=== PATIENT | male | born 1960 | race Caucasian/White ===

== ENCOUNTER 2024-04-08 00:08 | Emergency (ER) | payer MEDICAID, OTHER ==
[~2024-04-08] VITALS: Ht 177.8 cm; Wt 95.4 kg
[2024-04-08 00:51] LABS: Basophils # (auto) 0 10 ^3/uL (0-0.2); Basophils % (auto) 0.5 % (0.0-2.0); Eosinophils # (auto) 0.6 10 ^3/uL (0-0.8); Hematocrit 46.5 % (41.0-53.0); Hemoglobin 15.3 g/dL (13.5-17.5); Lymphocytes # (auto) 2.3 10 ^3/uL (0.4-5.4); Lymphocytes % (auto) 25.3 % (10.0-50.0); Mean Corpuscular Hgb Conc. 32.9 g/dL (32.0-36.0); Mean Corpuscular Volume 85.3 fL (80.0-100.0); Monocytes # (auto) 0.7 10 ^3/uL (0-1.3); Neutrophils # (auto) 5.4 10 ^3/uL (1.6-8.6); Neutrophils % (auto) 59.2 % (37.0-80.0); Nucleated Red Blood Cells % 0.1 %; Red Blood Cells 5.45 10^6/uL (4.5-5.90); Red Cell Distribution Width 15.2 % (11.8-14.3); White Blood Cell 9.1 10^3/uL (4.4-10.8)
[2024-04-08 00:56] LABS: Alanine Aminotransferase 24 U/L (7-40); Albumin 4.1 g/dL (3.2-4.8); Alkaline Phosphatase 78 U/L (46-116); Anion Gap 8 (5-15); Aspartate Aminotransferase 24 U/L (13-40); BUN/Creatinine Ratio 9.5 (10.0-20.0); Blood Urea Nitrogen 8 mg/dL (9-23); Calcium 9.2 mg/dL (8.7-10.4); Carbon Dioxide 24 mmol/L (20-30); Chloride 107 mmol/L (98-107); Glucose 187 mg/dL (74-106); Magnesium 2.1 mg/dL (1.6-2.6); Sodium 139 mmol/L (136-145)
[2024-04-08 00:57] LABS: Bilirubin, Total 0.4 mg/dL (0.2-1.0); Total Protein 7.6 g/dL (5.7-8.2)
[2024-04-08 01:04] LABS: Partial Thromboplastin Time 26.8 SEC (24.5-34.5); Prothrombin Time 10.6 sec (9.3-11.8)
[2024-04-08] MEDS ORDERED: AZIT500T66 PO (02:56)
[2024-04-08] MEDS: AZITHROMYCIN 250 MG TAB PO ONE (03:28)
[2024-04-08 03:33] VITALS: BP 140/71; PULSE 73; RESP 17; TEMP 98.1; O2SAT 95
== END 2024-04-08 03:35 | disposition home or self-care (01) ==
LOC: ER 00:08
DX: J18.9 Pneumonia, unspecified organism (principal); Z88.2 Allergy status to sulfonamides
CPT/HCPCS: 36415; 71045; 80053; 83735; 83880; 84484; 85025; 85610; 85730; 93005

== ENCOUNTER 2024-04-08 04:24 | Inpatient (IN) | payer MEDICAID ==
[~2024-04-08] VITALS: Ht 177.8 cm; Wt 82.6 kg
[~2024-04-08 04:24] MED LIST: AZIT500T66 PO
[2024-04-08 04:50] VITALS: PULSE 81; RESP 16; O2SAT 91
[2024-04-08] MEDS: ASPirin 81 mg TAB PO ONE (06:24)
[2024-04-08 07:21] LABS: INR 1.03 (0.9-1.15); Partial Thromboplastin Time 27.2 SEC (24.5-34.5); Prothrombin Time 10.9 sec (9.3-11.8)
[2024-04-08 07:25] VITALS: PULSE 79; RESP 15; O2SAT 95
[2024-04-08 07:50] LABS: Alanine Aminotransferase 23 U/L (7-40); Albumin 4.1 g/dL (3.2-4.8); Alkaline Phosphatase 72 U/L (46-116); Anion Gap 4 (5-15); Aspartate Aminotransferase 20 U/L (13-40); Bilirubin, Total 0.4 mg/dL (0.2-1.0); Blood Urea Nitrogen 7 mg/dL (9-23); Calcium 9.1 mg/dL (8.7-10.4); Carbon Dioxide 27 mmol/L (20-30); Chloride 108 mmol/L (98-107); Glucose 191 mg/dL (74-106); Potassium 3.8 mmol/L (3.5-5.1); Sodium 139 mmol/L (136-145); Total Protein 7.1 g/dL (5.7-8.2)
[2024-04-08 07:54] LABS: Basophils # (auto) 0 10 ^3/uL (0-0.2); Basophils % (auto) 0.5 % (0.0-2.0); Eosinophils # (auto) 0.5 10 ^3/uL (0-0.8); Hematocrit 45.6 % (41.0-53.0); Hemoglobin 15.1 g/dL (13.5-17.5); Lymphocytes # (auto) 1.5 10 ^3/uL (0.4-5.4); Lymphocytes % (auto) 22.3 % (10.0-50.0); Mean Corpuscular Hemoglobin 28.4 pg (28.0-32.0); Mean Corpuscular Hgb Conc. 33.2 g/dL (32.0-36.0); Mean Corpuscular Volume 85.5 fL (80.0-100.0); Monocytes # (auto) 0.7 10 ^3/uL (0-1.3); Neutrophils # (auto) 3.9 10 ^3/uL (1.6-8.6); Neutrophils % (auto) 59.2 % (37.0-80.0); Nucleated Red Blood Cells % 0.1 %; Red Blood Cells 5.33 10^6/uL (4.5-5.90); Red Cell Distribution Width 15.2 % (11.8-14.3); White Blood Cell 6.6 10^3/uL (4.4-10.8)
[2024-04-08 10:05] VITALS: PULSE 80; RESP 16; O2SAT 92
[2024-04-08] MEDS ORDERED: LORazepam 0.5 MG TAB PO PRN (10:15)
[2024-04-08] MEDS ORDERED: ONDANSETRON HCL 4 MG/2 ML VIAL IV PRN (10:15)
[2024-04-08] MEDS ORDERED: ACETAMINOPHEN 325 MG TAB PO PRN (10:15)
[2024-04-08] MEDS ORDERED: NITROGLYCERIN 0.4 MG SL TAB SL PRN ×2 (10:15)
[2024-04-08] MEDS: levoFLOXacin 500MG 100 ML IV ONE (17:04)
[2024-04-08 17:25] VITALS: PULSE 91
[2024-04-08 20:00] VITALS: PULSE 85; PULSE 88; RESP 18; O2SAT 95
[2024-04-08 21:00] VITALS: BP 133/76; PULSE 85; RESP 18; TEMP 98; O2SAT 92
[2024-04-08] MEDS: METOPROLOL TARTRATE 25 MG TAB PO SCH (21:56)
[2024-04-08] MEDS: ATORVASTATIN 20 MG TAB PO SCH (21:56)
[2024-04-08] MEDS ORDERED: ZOLPIDEM TARTRATE 5 MG TAB PO PRN (22:00)
[2024-04-09] VITALS (8 sets, daily range): BP systolic 112–130; BP diastolic 63–78; PULSE 67–103; RESP 17–19; TEMP 98–98.7; O2SAT 90–93
[2024-04-09 06:29] LABS: Chloride 106 mmol/L (98-107); Sodium 139 mmol/L (136-145)
[2024-04-09 06:30] LABS: Anion Gap 7 (5-15); Calcium 9.4 mg/dL (8.7-10.4); Carbon Dioxide 26 mmol/L (20-30)
[2024-04-09 06:35] LABS: BUN/Creatinine Ratio 12.3 (10.0-20.0); Basophils # (auto) 0 10 ^3/uL (0-0.2); Basophils % (auto) 0.3 % (0.0-2.0); Blood Urea Nitrogen 10 mg/dL (9-23); Eosinophils # (auto) 0.6 10 ^3/uL (0-0.8); Eosinophils % (auto) 8.8 % (0.0-7.0); Glucose 149 mg/dL (74-106); Hematocrit 45.2 % (41.0-53.0); Lymphocytes # (auto) 1.7 10 ^3/uL (0.4-5.4); Lymphocytes % (auto) 23.1 % (10.0-50.0); Mean Corpuscular Hemoglobin 28.1 pg (28.0-32.0); Mean Corpuscular Hgb Conc. 33.1 g/dL (32.0-36.0); Mean Corpuscular Volume 85.1 fL (80.0-100.0); Monocytes # (auto) 0.7 10 ^3/uL (0-1.3); Monocytes % (auto) 8.9 % (0.0-12.0); Neutrophils # (auto) 4.3 10 ^3/uL (1.6-8.6); Neutrophils % (auto) 58.9 % (37.0-80.0); Nucleated Red Blood Cells % 0.1 %; Red Blood Cells 5.32 10^6/uL (4.5-5.90); Red Cell Distribution Width 14.9 % (11.8-14.3); Triglycerides 133 mg/dL (< 150); White Blood Cell 7.4 10^3/uL (4.4-10.8)
[2024-04-09 06:36] LABS: LDL Cholesterol 132 mg/dL (< 100)
[2024-04-09 06:37] LABS: Cholesterol 172 mg/dL (< 200); HDL Cholesterol 26 mg/dL (40-59)
[2024-04-09] MEDS ORDERED: IOHEXOL 350 MG/ML 100ML IJ ONE (07:56)
[2024-04-09 08:12] LABS: Urine Bacteria None Seen /hpf (None Seen)
[2024-04-09 08:21] LABS: Urine Blood Negative /uL (Negative); Urine Clarity Clear (Clear); Urine Color Light-Yellow (Yellow); Urine Protein, UAD Negative (Negative); Urine Specific Gravity 1.012 (1.001-1.035); Urine Urobilinogen Normal (Negative); Urine WBC <1 /hpf (0 - 3); Urine pH 6.5 (5.0-9.0)
[2024-04-09 08:34] LABS: Amphetamine Screen, Urine Neg (NEGATIVE); Barbiturate Scree,Urine Neg (NEGATIVE); Benzodiazephine Screen, Urine Neg (NEGATIVE); Cocaine Screen, Urine Neg (NEGATIVE); Opiate Scree,Urine Neg (NEGATIVE); Phencyclidine Screen, Urine Neg (NEGATIVE)
[2024-04-09 08:35] LABS: Cannabinoid Screen, Urine Neg (NEGATIVE)
[2024-04-09] MEDS: DOCUSATE SOD 100 MG CAP PO SCH (10:15)
[2024-04-09] MEDS: ASPirin 81 mg TAB PO SCH (10:15)
[2024-04-09] MEDS: levoFLOXacin 500MG 100 ML IV SCH (10:15)
[2024-04-09] MEDS: ENOXAPARIN SOD 40 MG/0.4 ML SYRINGE SC SCH (10:15)
[2024-04-09 10:26] LABS: Rapid Influenza A Negative (Negative); Rapid Influenza B Negative (Negative)
[2024-04-09] MEDS ORDERED: DEXTROSE (50%) 50ML SYRG IV PRN (18:45)
[2024-04-09] MEDS: ACCU-CHEK COMFORT CURVE STRIP VI SCH (20:00)
[2024-04-09] MEDS: InsuLIN REG 1unit/0.01ml Soln (100units/ml) SC SCH (20:00)
[2024-04-09] MEDS: guaiFENesin-DM 100/10mg/5ml SYR PO PRN (21:38)
[2024-04-10 01:00] VITALS: BP 114/70; PULSE 84; RESP 17; TEMP 98.3; O2SAT 90
[2024-04-10 05:00] VITALS: BP 114/78; PULSE 84; RESP 16; TEMP 98.3; O2SAT 90
[2024-04-10 06:35] LABS: Anion Gap 7 (5-15); Carbon Dioxide 27 mmol/L (20-30); Chloride 105 mmol/L (98-107); Sodium 139 mmol/L (136-145)
[2024-04-10 06:36] LABS: Calcium 9.3 mg/dL (8.7-10.4)
[2024-04-10 06:38] LABS: Basophils # (auto) 0 10 ^3/uL (0-0.2); Basophils % (auto) 0.6 % (0.0-2.0); Eosinophils # (auto) 0.7 10 ^3/uL (0-0.8); Eosinophils % (auto) 8.3 % (0.0-7.0); Hemoglobin 15.6 g/dL (13.5-17.5); Lymphocytes # (auto) 2.1 10 ^3/uL (0.4-5.4); Mean Corpuscular Hemoglobin 28.6 pg (28.0-32.0); Mean Corpuscular Hgb Conc. 33.9 g/dL (32.0-36.0); Mean Corpuscular Volume 84.3 fL (80.0-100.0); Monocytes # (auto) 0.8 10 ^3/uL (0-1.3); Monocytes % (auto) 9.4 % (0.0-12.0); Neutrophils # (auto) 4.7 10 ^3/uL (1.6-8.6); Neutrophils % (auto) 56.7 % (37.0-80.0); Nucleated Red Blood Cells % 0.2 %; Red Blood Cells 5.45 10^6/uL (4.5-5.90); Red Cell Distribution Width 14.6 % (11.8-14.3); White Blood Cell 8.3 10^3/uL (4.4-10.8)
[2024-04-10 06:41] LABS: BUN/Creatinine Ratio 15.3 (10.0-20.0); Blood Urea Nitrogen 13 mg/dL (9-23); Glucose 148 mg/dL (74-106)
[2024-04-10 08:00] VITALS: PULSE 87
[2024-04-10 09:00] VITALS: BP 137/74; PULSE 64; RESP 18; TEMP 98.3; O2SAT 90
[2024-04-10 13:00] VITALS: BP 123/75; PULSE 89; RESP 16; TEMP 98; O2SAT 91
[2024-04-10] MEDS ORDERED: LEVO750T40 PO (14:59)
[2024-04-10] MEDS ORDERED: ASPI-325 PO (15:00)
[2024-04-10] MEDS ORDERED: ATOR40TA52 PO (15:00)
[2024-04-10 17:00] VITALS: BP 102/57; PULSE 88; RESP 16; TEMP 97.9; O2SAT 91
== END 2024-04-10 16:57 | disposition home or self-care (01) | DRG 137 ==
LOC: ER 04:24 → TELE 10:10 → TELE-EAST 17:26
PROVIDERS: ADMIT Student in an Organized Health Care Education/Training Program; ATTEND Student in an Organized Health Care Education/Training Program
DX: J15.69 Pneumonia due to other Gram-negative bacteria (principal); I21.A1 Myocardial infarction type 2; J15.9 Unspecified bacterial pneumonia; E11.9 Type 2 diabetes mellitus without complications; E78.5 Hyperlipidemia, unspecified; Z79.899 Other long term (current) drug therapy
CPT/HCPCS: 36415; 71275; 80048; 80053; 80061; 80307; 81001; 82962; 83036; 83880; 84484; 85025; 85379; 85610; 85730; 87070; 87081; 87205; 87804; 93005; 93306; 96365; G0378; J1815; J1956

== ENCOUNTER 2024-04-19 20:53 | Inpatient (IN) | payer MEDICAID ==
[~2024-04-19] VITALS: Ht 177.8 cm; Wt 84.0 kg
[~2024-04-19 20:53] MED LIST changes: +ASPI-325 PO; +ATOR40TA52 PO; +LEVO750T40 PO
[2024-04-19 21:23] LABS: Basophils # (auto) 0.1 10 ^3/uL (0-0.2); Basophils % (auto) 0.6 % (0.0-2.0); Eosinophils # (auto) 0.1 10 ^3/uL (0-0.8); Eosinophils % (auto) 0.4 % (0.0-7.0); Hematocrit 46.4 % (41.0-53.0); Hemoglobin 15.2 g/dL (13.5-17.5); Lymphocytes # (auto) 2.3 10 ^3/uL (0.4-5.4); Lymphocytes % (auto) 12.5 % (10.0-50.0); Mean Corpuscular Hemoglobin 27.7 pg (28.0-32.0); Mean Corpuscular Hgb Conc. 32.8 g/dL (32.0-36.0); Mean Corpuscular Volume 84.4 fL (80.0-100.0); Monocytes # (auto) 0.7 10 ^3/uL (0-1.3); Monocytes % (auto) 3.5 % (0.0-12.0); Neutrophils # (auto) 15.5 10 ^3/uL (1.6-8.6); Nucleated Red Blood Cells % 0.1 %; Platelet Count (auto) 231 10^3/uL (140-450); Red Blood Cells 5.49 10^6/uL (4.5-5.90); White Blood Cell 18.6 10^3/uL (4.4-10.8)
[2024-04-19 21:41] LABS: Alanine Aminotransferase 28 U/L (7-40); Albumin 4.6 g/dL (3.2-4.8); Alkaline Phosphatase 79 U/L (46-116); Anion Gap 8 (5-15); Aspartate Aminotransferase 23 U/L (13-40); BUN/Creatinine Ratio 13.8 (10.0-20.0); Blood Urea Nitrogen 13 mg/dL (9-23); Calcium 10.1 mg/dL (8.7-10.4); Carbon Dioxide 23 mmol/L (20-30); Chloride 106 mmol/L (98-107); Glucose 146 mg/dL (74-106); Magnesium 2.1 mg/dL (1.6-2.6); Sodium 137 mmol/L (136-145)
[2024-04-19 21:42] LABS: Bilirubin, Total 0.7 mg/dL (0.2-1.0); Total Protein 7.9 g/dL (5.7-8.2)
[2024-04-19 21:58] LABS: INR 1.1 (0.9-1.15); Partial Thromboplastin Time 26.1 SEC (24.5-34.5); Prothrombin Time 11.6 sec (9.3-11.8)
[2024-04-20] MEDS ORDERED: MORPHINE SULFATE INJ 2 MG/ml SYRG IV PRN (00:15)
[2024-04-20] MEDS ORDERED: ACETAMINOPHEN 325 MG TAB PO PRN (00:15)
[2024-04-20] MEDS ORDERED: ONDANSETRON HCL 4 MG/2 ML VIAL IV PRN (00:15)
[2024-04-20] MEDS ORDERED: HYDROcodone-ACET 5/325MG TAB PO PRN (00:15)
[2024-04-20] MEDS ORDERED: DEXTROSE (50%) 50ML SYRG IV PRN (00:15)
[2024-04-20] MEDS ORDERED: hydrALAZINE HCL 20 MG/ML VL IV PRN (00:15)
[2024-04-20] MEDS ORDERED: DOCUSATE SOD 100 MG CAP PO PRN (00:15)
[2024-04-20] MEDS ORDERED: NITROGLYCERIN 0.4 MG SL TAB SL PRN (00:15)
[2024-04-20] MEDS: SODIUM CHLORIDE 0.9% 1,000 ML IV SCH (00:42)
[2024-04-20] MEDS: cefTRIAXone 1GM/50ML D5W 50 ML IV ONE (01:08)
[2024-04-20] MEDS: AZITHROMYCIN 500MG/ 250ML 250 ML IV ONE (01:21)
[2024-04-20 05:01] VITALS: PULSE 65; RESP 22
[2024-04-20 05:34] LABS: Basophils # (auto) 0.1 10 ^3/uL (0-0.2); Basophils % (auto) 0.4 % (0.0-2.0); Eosinophils # (auto) 0.6 10 ^3/uL (0-0.8); Eosinophils % (auto) 3.8 % (0.0-7.0); Hematocrit 46.9 % (41.0-53.0); Hemoglobin 15.5 g/dL (13.5-17.5); Lymphocytes # (auto) 2.6 10 ^3/uL (0.4-5.4); Lymphocytes % (auto) 16.1 % (10.0-50.0); Mean Corpuscular Hgb Conc. 33.1 g/dL (32.0-36.0); Mean Corpuscular Volume 84.8 fL (80.0-100.0); Monocytes # (auto) 1.4 10 ^3/uL (0-1.3); Monocytes % (auto) 8.6 % (0.0-12.0); Neutrophils # (auto) 11.4 10 ^3/uL (1.6-8.6); Neutrophils % (auto) 71.1 % (37.0-80.0); Nucleated Red Blood Cells % 0.1 %; Platelet Count (auto) 197 10^3/uL (140-450); Red Blood Cells 5.53 10^6/uL (4.5-5.90); Red Cell Distribution Width 14.7 % (11.8-14.3); White Blood Cell 16.1 10^3/uL (4.4-10.8)
[2024-04-20 05:52] LABS: Alanine Aminotransferase 24 U/L (7-40); Albumin 4.5 g/dL (3.2-4.8); Alkaline Phosphatase 65 U/L (46-116); Anion Gap 5 (5-15); Aspartate Aminotransferase 19 U/L (13-40); BUN/Creatinine Ratio 16.7 (10.0-20.0); Bilirubin, Total 0.6 mg/dL (0.2-1.0); Blood Urea Nitrogen 14 mg/dL (9-23); Calcium 9.8 mg/dL (8.7-10.4); Carbon Dioxide 28 mmol/L (20-30); Chloride 107 mmol/L (98-107); Glucose 85 mg/dL (74-106); Potassium 3.8 mmol/L (3.5-5.1); Sodium 140 mmol/L (136-145)
[2024-04-20 05:53] LABS: Total Protein 7.8 g/dL (5.7-8.2)
[2024-04-20] MEDS: InsuLIN REG 1unit/0.01ml Soln (100units/ml) SC SCH ×2 (07:00→23:12)
[2024-04-20] MEDS: ACCU-CHEK COMFORT CURVE STRIP VI SCH (07:00)
[2024-04-20 08:30] VITALS: PULSE 60; RESP 22
[2024-04-20] MEDS: METOPROLOL TARTRATE 25 MG TAB PO SCH (10:08)
[2024-04-20] MEDS: amLODIPine BESYLATE 5 MG TAB PO SCH (10:08)
[2024-04-20] MEDS: ASPirin 81 mg TAB PO SCH (10:08)
[2024-04-20 19:30] VITALS: RESP 22; O2SAT 91
[2024-04-20] MEDS: cefTRIAXone 1GM/50ML D5W 50 ML IV SCH (21:47)
[2024-04-20 23:00] VITALS: PULSE 74
[2024-04-20] MEDS: AZITHROMYCIN 500MG/ 250ML 250 ML IV SCH (23:02)
[2024-04-20] MEDS: ATORVASTATIN 20 MG TAB PO SCH (23:19)
[2024-04-20 23:38] VITALS: PULSE 71; RESP 18; O2SAT 93
[2024-04-21 01:00] VITALS: BP 108/67; PULSE 72; RESP 17; TEMP 98.1; O2SAT 90
[2024-04-21 05:00] VITALS: BP 109/70; PULSE 71; RESP 19; TEMP 98.3; O2SAT 94
[2024-04-21 05:49] LABS: Basophils # (auto) 0.1 10 ^3/uL (0-0.2); Basophils % (auto) 0.9 % (0.0-2.0); Eosinophils # (auto) 0.9 10 ^3/uL (0-0.8); Eosinophils % (auto) 9.7 % (0.0-7.0); Hemoglobin 14.5 g/dL (13.5-17.5); Lymphocytes # (auto) 2.1 10 ^3/uL (0.4-5.4); Lymphocytes % (auto) 23.9 % (10.0-50.0); Mean Corpuscular Volume 84.7 fL (80.0-100.0); Monocytes # (auto) 0.7 10 ^3/uL (0-1.3); Monocytes % (auto) 7.9 % (0.0-12.0); Neutrophils # (auto) 5.1 10 ^3/uL (1.6-8.6); Neutrophils % (auto) 57.6 % (37.0-80.0); Nucleated Red Blood Cells % 0.1 %; Platelet Count (auto) 149 10^3/uL (140-450); Red Blood Cells 5.19 10^6/uL (4.5-5.90); Red Cell Distribution Width 14.8 % (11.8-14.3); White Blood Cell 8.9 10^3/uL (4.4-10.8)
[2024-04-21 06:08] LABS: Alanine Aminotransferase 24 U/L (7-40); Albumin 3.7 g/dL (3.2-4.8); Alkaline Phosphatase 49 U/L (46-116); Anion Gap 5 (5-15); Aspartate Aminotransferase 22 U/L (13-40); BUN/Creatinine Ratio 21.5 (10.0-20.0); Bilirubin, Total 0.5 mg/dL (0.2-1.0); Blood Urea Nitrogen 17 mg/dL (9-23); Calcium 8.7 mg/dL (8.7-10.4); Carbon Dioxide 27 mmol/L (20-30); Chloride 108 mmol/L (98-107); Glucose 104 mg/dL (74-106); Potassium 3.9 mmol/L (3.5-5.1); Sodium 140 mmol/L (136-145); Total Protein 6.5 g/dL (5.7-8.2)
[2024-04-21 08:00] VITALS: BP 100/62; PULSE 69; RESP 16; TEMP 98.6; O2SAT 97
[2024-04-21] MEDS: THROAT LOZENGES(CEPASTAT) MT ONE (12:30)
[2024-04-21 12:47] VITALS: BP 107/62; PULSE 62; RESP 19; TEMP 97.6; O2SAT 96
[2024-04-21 16:45] VITALS: BP 112/70; PULSE 84; RESP 17; TEMP 97.7; O2SAT 93
[2024-04-21] MEDS ORDERED: guaiFENesin 200 MG/10 ML UD PO PRN (16:45)
[2024-04-21] MEDS: guaiFENesin 200 MG/10 ML UD PO ONE (17:16)
[2024-04-21 18:58] LABS: Urine Bacteria None Seen /hpf (None Seen)
[2024-04-21 19:07] LABS: Urine Blood Negative /uL (Negative); Urine Clarity Clear (Clear); Urine Color Light-Yellow (Yellow); Urine Protein, UAD Negative (Negative); Urine Specific Gravity 1.018 (1.001-1.035); Urine Urobilinogen Normal (Negative); Urine WBC <1 /hpf (0 - 3); Urine pH 5.5 (5.0-9.0)
[2024-04-21 21:00] VITALS: BP 116/60; PULSE 74; RESP 19; TEMP 98; O2SAT 96
[2024-04-22] VITALS (7 sets, daily range): BP systolic 101–119; BP diastolic 65–71; PULSE 59–85; RESP 15–19; TEMP 98.1–98.7; O2SAT 93–95
[2024-04-22 06:41] LABS: Basophils # (auto) 0 10 ^3/uL (0-0.2); Basophils % (auto) 0.4 % (0.0-2.0); Eosinophils # (auto) 0.7 10 ^3/uL (0-0.8); Eosinophils % (auto) 7.7 % (0.0-7.0); Hematocrit 44.6 % (41.0-53.0); Hemoglobin 14.9 g/dL (13.5-17.5); Lymphocytes # (auto) 2.2 10 ^3/uL (0.4-5.4); Lymphocytes % (auto) 23.1 % (10.0-50.0); Mean Corpuscular Hemoglobin 28.1 pg (28.0-32.0); Mean Corpuscular Hgb Conc. 33.4 g/dL (32.0-36.0); Mean Corpuscular Volume 84.2 fL (80.0-100.0); Monocytes # (auto) 0.9 10 ^3/uL (0-1.3); Monocytes % (auto) 9.2 % (0.0-12.0); Neutrophils # (auto) 5.7 10 ^3/uL (1.6-8.6); Neutrophils % (auto) 59.6 % (37.0-80.0); Nucleated Red Blood Cells % 0.1 %; Platelet Count (auto) 142 10^3/uL (140-450); Red Blood Cells 5.29 10^6/uL (4.5-5.90); Red Cell Distribution Width 14.6 % (11.8-14.3); White Blood Cell 9.5 10^3/uL (4.4-10.8)
[2024-04-22 07:10] LABS: Anion Gap 4 (5-15); Calcium 8.9 mg/dL (8.7-10.4); Carbon Dioxide 29 mmol/L (20-30); Chloride 105 mmol/L (98-107); Potassium 3.8 mmol/L (3.5-5.1); Sodium 138 mmol/L (136-145)
[2024-04-22 07:16] LABS: BUN/Creatinine Ratio 16.9 (10.0-20.0); Blood Urea Nitrogen 13 mg/dL (9-23); Glucose 114 mg/dL (74-106)
[2024-04-23] VITALS (8 sets, daily range): BP systolic 63–122; BP diastolic 51–68; PULSE 16–87; RESP 15–19; TEMP 98.1–98.3; O2SAT 92–98
[2024-04-23] MEDS: THROAT LOZENGES(CEPASTAT) MT PRN (06:07)
[2024-04-23 07:26] LABS: Basophils # (auto) 0 10 ^3/uL (0-0.2); Basophils % (auto) 0.5 % (0.0-2.0); Eosinophils # (auto) 0.8 10 ^3/uL (0-0.8); Eosinophils % (auto) 8.5 % (0.0-7.0); Hematocrit 44.9 % (41.0-53.0); Lymphocytes # (auto) 2.2 10 ^3/uL (0.4-5.4); Lymphocytes % (auto) 22.2 % (10.0-50.0); Mean Corpuscular Hgb Conc. 33.4 g/dL (32.0-36.0); Mean Corpuscular Volume 83.9 fL (80.0-100.0); Monocytes # (auto) 0.8 10 ^3/uL (0-1.3); Monocytes % (auto) 8.2 % (0.0-12.0); Neutrophils % (auto) 60.6 % (37.0-80.0); Nucleated Red Blood Cells % 0.1 %; Platelet Count (auto) 161 10^3/uL (140-450); Red Blood Cells 5.36 10^6/uL (4.5-5.90); Red Cell Distribution Width 14.8 % (11.8-14.3); White Blood Cell 9.9 10^3/uL (4.4-10.8)
[2024-04-23 07:34] LABS: Anion Gap 5 (5-15); Calcium 9.4 mg/dL (8.7-10.4); Carbon Dioxide 28 mmol/L (20-30); Chloride 105 mmol/L (98-107); Potassium 3.8 mmol/L (3.5-5.1); Sodium 138 mmol/L (136-145)
[2024-04-23 07:40] LABS: BUN/Creatinine Ratio 13.9 (10.0-20.0); Blood Urea Nitrogen 11 mg/dL (9-23); Glucose 105 mg/dL (74-106)
[2024-04-23] MEDS: SODIUM CHLORIDE 0.9% 1,000 ML IV SCH (20:01)
[2024-04-24] VITALS (10 sets, daily range): BP systolic 101–127; BP diastolic 59–71; PULSE 70–97; RESP 17–20; TEMP 97.6–99.3; O2SAT 90–99
[2024-04-24] MEDS ORDERED: LIDOCAINE 2% JELLY 11ml (GLYDO) ONE (08:34)
[2024-04-24] MEDS ORDERED: NALOXONE HCL 0.4 MG/ML VIAL ONE (08:34)
[2024-04-24] MEDS ORDERED: SODIUM CHLORIDE LOCK 10 ML ONE (08:34)
[2024-04-24] MEDS ORDERED: FLUMAZENIL 0.1 MG/ML INJ 10ML MDV IV ONE (08:34)
[2024-04-24] MEDS ORDERED: EPINEPHrine HCL 1 MG/1 ML AMP ONE (08:34)
[2024-04-24] MEDS ORDERED: LIDOCAINE 2%HCL (LOCAL ANESTH.) INJ 20ML MDV ONE (08:34)
[2024-04-24] MEDS ORDERED: GLYCOPYRROLATE 0.2 MG/ML 1ML VIAL ONE (08:35)
[2024-04-24] MEDS: fentaNYL CITRATE 100 MCG/2 ML VL ONE (09:18)
[2024-04-24] MEDS: MIDAZOLAM HCL 5 MG/ML-1ML VIAL ONE (09:18)
[2024-04-25 05:00] VITALS: BP_SYST 119; BP_SYST 138; BP_DIAS 69; PULSE 74; PULSE 76; RESP 16; RESP 17; TEMP 98; TEMP 98.8; O2SAT 95
[2024-04-25 07:06] LABS: Basophils # (auto) 0.1 10 ^3/uL (0-0.2); Basophils % (auto) 0.9 % (0.0-2.0); Eosinophils # (auto) 0.9 10 ^3/uL (0-0.8); Eosinophils % (auto) 9.2 % (0.0-7.0); Hematocrit 46.7 % (41.0-53.0); Hemoglobin 15.2 g/dL (13.5-17.5); Lymphocytes # (auto) 2.5 10 ^3/uL (0.4-5.4); Lymphocytes % (auto) 25.1 % (10.0-50.0); Mean Corpuscular Hemoglobin 27.6 pg (28.0-32.0); Mean Corpuscular Hgb Conc. 32.6 g/dL (32.0-36.0); Mean Corpuscular Volume 84.8 fL (80.0-100.0); Monocytes # (auto) 0.7 10 ^3/uL (0-1.3); Monocytes % (auto) 7.5 % (0.0-12.0); Neutrophils # (auto) 5.7 10 ^3/uL (1.6-8.6); Neutrophils % (auto) 57.3 % (37.0-80.0); Nucleated Red Blood Cells % 0.1 %; Platelet Count (auto) 177 10^3/uL (140-450); Red Blood Cells 5.51 10^6/uL (4.5-5.90); Red Cell Distribution Width 14.8 % (11.8-14.3)
[2024-04-25 07:10] LABS: Anion Gap 5 (5-15); Carbon Dioxide 26 mmol/L (20-30); Chloride 106 mmol/L (98-107); Potassium 3.9 mmol/L (3.5-5.1); Sodium 137 mmol/L (136-145)
[2024-04-25 07:11] LABS: Calcium 9.1 mg/dL (8.7-10.4)
[2024-04-25 07:15] LABS: Glucose 116 mg/dL (74-106)
[2024-04-25 07:16] LABS: Blood Urea Nitrogen 10 mg/dL (9-23)
[2024-04-25 09:00] VITALS: BP 127/71; PULSE 68; RESP 16; TEMP 98.1; O2SAT 99
[2024-04-25] MEDS ORDERED: AUG875T PO (12:12)
[2024-04-25 13:00] VITALS: BP 109/64; PULSE 76; RESP 18; TEMP 98.1; O2SAT 96
[2024-04-25 16:42] VITALS: BP 102/71; PULSE 68; RESP 16; TEMP 97.9; O2SAT 94
[2024-04-26] MEDS ORDERED: ALBU108A5 INH (22:06)
[2024-04-26] MEDS ORDERED: ATOR20TA50 PO (22:06)
[2024-04-26] MEDS ORDERED: LISI-275 PO (22:06)
[2024-04-26] MEDS ORDERED: METF-371 PO (22:06)
[2024-04-26] MEDS ORDERED: EMPA1TAB PO (22:06)
[2024-04-26] MEDS ORDERED: GLIM-38 PO (22:06)
== END 2024-04-25 16:40 | disposition home or self-care (01) | DRG 720 ==
LOC: ER 20:53 → TELE 04-20 00:26 → TELE-WESTW 04-20 22:53 → WEST WING 04-25 01:19
PROVIDERS: ADMIT Internal Medicine Geriatric Medicine; ATTEND Internal Medicine Geriatric Medicine
PROC: 0B9C8ZX Drainage of Right Upper Lung Lobe, Via Natural or Artificial Opening Endoscopic, Diagnostic (ICD-10-PCS; 2024-04-24)
PROC: 0B9F8ZX Drainage of Right Lower Lung Lobe, Via Natural or Artificial Opening Endoscopic, Diagnostic (ICD-10-PCS; principal; 2024-04-24 09:15)
DX: A41.50 Gram-negative sepsis, unspecified (principal); J96.01 Acute respiratory failure with hypoxia; J15.69 Pneumonia due to other Gram-negative bacteria; J15.9 Unspecified bacterial pneumonia; E88.810 Metabolic syndrome; I10 Essential (primary) hypertension; I16.0 Hypertensive urgency; Z88.2 Allergy status to sulfonamides; E78.5 Hyperlipidemia, unspecified; E11.9 Type 2 diabetes mellitus without complications; Z79.899 Other long term (current) drug therapy; Z88.8 Allergy status to other drugs, medicaments and biological substances
CPT/HCPCS: 31624; 36415; 71045; 71250; 80048; 80053; 81001; 82962; 83735; 83880; 84484; 85025; 85379; 85610; 85730; 87070; 87081; 87205; 93005; 96365; 96367; 97163; 99291; G0378; J0171; J1815; J2250

== ENCOUNTER 2024-04-26 18:13 | Inpatient (IN) | payer MEDICAID ==
[~2024-04-26] VITALS: Ht 177.8 cm; Wt 88.0 kg
[2024-04-26] VITALS (7 sets, daily range): BP systolic 96–100; BP diastolic 58–63; PULSE 74–91; RESP 16–24; O2SAT 93–97
[~2024-04-26 18:13] MED LIST changes: +AUG875T PO; -AZIT500T66 PO; -LEVO750T40 PO
[2024-04-26] MEDS ORDERED: NITROGLYCERIN 2% OINT 1GM PKG TD ONE (18:30)
[2024-04-26 18:49] LABS: Basophils # (auto) 0 10 ^3/uL (0-0.2); Basophils % (auto) 0.4 % (0.0-2.0); Eosinophils # (auto) 0.6 10 ^3/uL (0-0.8); Hematocrit 47.5 % (41.0-53.0); Hemoglobin 15.7 g/dL (13.5-17.5); Lymphocytes # (auto) 2.4 10 ^3/uL (0.4-5.4); Lymphocytes % (auto) 23.5 % (10.0-50.0); Mean Corpuscular Hemoglobin 27.8 pg (28.0-32.0); Mean Corpuscular Volume 84.2 fL (80.0-100.0); Monocytes # (auto) 0.9 10 ^3/uL (0-1.3); Monocytes % (auto) 8.6 % (0.0-12.0); Neutrophils # (auto) 6.3 10 ^3/uL (1.6-8.6); Neutrophils % (auto) 61.5 % (37.0-80.0); Nucleated Red Blood Cells % 0.1 %; Platelet Count (auto) 176 10^3/uL (140-450); Red Blood Cells 5.65 10^6/uL (4.5-5.90); Red Cell Distribution Width 14.8 % (11.8-14.3); White Blood Cell 10.2 10^3/uL (4.4-10.8)
[2024-04-26 19:05] LABS: Alanine Aminotransferase 50 U/L (7-40); Albumin 4.2 g/dL (3.2-4.8); Alkaline Phosphatase 63 U/L (46-116); Anion Gap 5 (5-15); Aspartate Aminotransferase 78 U/L (13-40); BUN/Creatinine Ratio 17.4 (10.0-20.0); Blood Urea Nitrogen 15 mg/dL (9-23); Calcium 9.3 mg/dL (8.7-10.4); Carbon Dioxide 27 mmol/L (20-30); Chloride 107 mmol/L (98-107); Glucose 117 mg/dL (74-106); Potassium 3.8 mmol/L (3.5-5.1); Sodium 139 mmol/L (136-145)
[2024-04-26 19:06] LABS: Bilirubin, Total 0.5 mg/dL (0.2-1.0); Total Protein 7.1 g/dL (5.7-8.2)
[2024-04-26] MEDS: ANGIOMAX 250 MG VIAL IV ONE (19:07)
[2024-04-26] MEDS: HEPARIN SODIUM (PORCINE) 5000 UNITS/ML 1ML VIAL ONE (19:08)
[2024-04-26] MEDS: SODIUM CHL 0.9% 50 ML ONE (19:08)
[2024-04-26] MEDS: LIDOCAINE 2%HCL (LOCAL ANESTH.) INJ 20ML MDV ONE (19:08)
[2024-04-26] MEDS: VERAPAMIL 2.5MG/ML INJ 2ML VIAL IV ONE (19:08)
[2024-04-26] MEDS: MIDAZOLAM HCL 2MG/2ML 2ml VIAL (1mg/ml) ONE (19:08)
[2024-04-26] MEDS: fentaNYL CITRATE 100 MCG/2 ML VL ONE (19:08)
[2024-04-26 19:11] LABS: INR 1.08 (0.9-1.15); Partial Thromboplastin Time 26.5 SEC (24.5-34.5); Prothrombin Time 11.4 sec (9.3-11.8)
[2024-04-26] MEDS: HEPARIN SODIUM (PORCINE) 5000 UNITS/ML 1ML VIAL IV ONE (19:15)
[2024-04-26] MEDS: TICAGRELOR 90 MG TAB ONE (20:10)
[2024-04-26] MEDS ORDERED: MORPHINE SULFATE INJ 2 MG/ml SYRG IV PRN (20:45)
[2024-04-26] MEDS ORDERED: NITROGLYCERIN 0.4 MG SL TAB SL PRN (20:45)
[2024-04-26] MEDS: CARVEDILOL 3.125 MG TAB PO SCH (22:00)
[2024-04-26] MEDS ORDERED: LISI-275 PO (22:06)
[2024-04-26] MEDS ORDERED: ATOR20TA50 PO (22:06)
[2024-04-26] MEDS ORDERED: GLIM-38 PO (22:06)
[2024-04-26] MEDS ORDERED: ALBU108A5 INH (22:06)
[2024-04-26] MEDS ORDERED: EMPA1TAB PO (22:06)
[2024-04-26] MEDS ORDERED: METF-371 PO (22:06)
[2024-04-27] VITALS (9 sets, daily range): BP systolic 93–101; BP diastolic 57–64; PULSE 71–89; RESP 17–20; TEMP 97.6–98.2; O2SAT 94–95
[2024-04-27] MEDS: ATORVASTATIN 20 MG TAB PO SCH (00:41)
[2024-04-27] MEDS: TICAGRELOR 90 MG TAB PO SCH (00:42)
[2024-04-27] MEDS: LISINOPRIL 5 MG TAB PO SCH (10:00)
[2024-04-27] MEDS: ASPirin 81 mg TAB PO SCH (10:11)
[2024-04-28 01:00] VITALS: BP 98/60; PULSE 84; RESP 17; TEMP 98.3; O2SAT 94
[2024-04-28 05:00] VITALS: BP 101/60; PULSE 83; RESP 17; TEMP 97.9; O2SAT 94
[2024-04-28 08:09] LABS: Basophils # (auto) 0.1 10 ^3/uL (0-0.2); Basophils % (auto) 0.5 % (0.0-2.0); Eosinophils # (auto) 0.9 10 ^3/uL (0-0.8); Eosinophils % (auto) 7.8 % (0.0-7.0); Hematocrit 49.5 % (41.0-53.0); Hemoglobin 16.1 g/dL (13.5-17.5); Lymphocytes # (auto) 2.3 10 ^3/uL (0.4-5.4); Lymphocytes % (auto) 19.2 % (10.0-50.0); Mean Corpuscular Hemoglobin 27.8 pg (28.0-32.0); Mean Corpuscular Hgb Conc. 32.5 g/dL (32.0-36.0); Mean Corpuscular Volume 85.6 fL (80.0-100.0); Monocytes # (auto) 1.2 10 ^3/uL (0-1.3); Monocytes % (auto) 9.7 % (0.0-12.0); Neutrophils # (auto) 7.6 10 ^3/uL (1.6-8.6); Neutrophils % (auto) 62.8 % (37.0-80.0); Nucleated Red Blood Cells % 0.2 %; Platelet Count (auto) 179 10^3/uL (140-450); Red Blood Cells 5.78 10^6/uL (4.5-5.90); Red Cell Distribution Width 15.2 % (11.8-14.3); White Blood Cell 12.1 10^3/uL (4.4-10.8)
[2024-04-28 08:10] VITALS: PULSE 91
[2024-04-28 08:30] LABS: Alanine Aminotransferase 90 U/L (7-40); Albumin 4.3 g/dL (3.2-4.8); Alkaline Phosphatase 59 U/L (46-116); Anion Gap 6 (5-15); Aspartate Aminotransferase 340 U/L (13-40); BUN/Creatinine Ratio 12.2 (10.0-20.0); Blood Urea Nitrogen 11 mg/dL (9-23); Calcium 9.4 mg/dL (8.7-10.4); Carbon Dioxide 27 mmol/L (20-30); Chloride 105 mmol/L (98-107); Glucose 123 mg/dL (74-106); Potassium 3.7 mmol/L (3.5-5.1); Sodium 138 mmol/L (136-145)
[2024-04-28 08:31] LABS: Bilirubin, Total 0.9 mg/dL (0.2-1.0); Total Protein 7.5 g/dL (5.7-8.2)
[2024-04-28 09:00] VITALS: BP 113/68; PULSE 80; RESP 18; TEMP 97.8; O2SAT 94
[2024-04-28] MEDS ORDERED: TICA90TA PO (12:04)
[2024-04-28] MEDS ORDERED: CARV-214 PO (12:04)
[2024-04-28 12:40] VITALS: BP 102/58; PULSE 80; RESP 19; TEMP 98; O2SAT 94
== END 2024-04-28 15:00 | disposition home or self-care (01) | DRG 174 ==
LOC: ER 18:13 → TELE 20:46 → TELE-WESTW 21:26
PROVIDERS: ADMIT Internal Medicine; ATTEND Internal Medicine
PROC: 027035Z Dilation of Coronary Artery, One Artery with Two Drug-eluting Intraluminal Devices, Percutaneous Approach (ICD-10-PCS; principal; 2024-04-26)
PROC: 3E03317 Introduction of Other Thrombolytic into Peripheral Vein, Percutaneous Approach (ICD-10-PCS; 2024-04-26)
PROC: 02C03ZZ Extirpation of Matter from Coronary Artery, One Artery, Percutaneous Approach (ICD-10-PCS; 2024-04-26)
PROC: B240ZZ3 Ultrasonography of Single Coronary Artery, Intravascular (ICD-10-PCS; 2024-04-26)
PROC: B211YZZ Fluoroscopy of Multiple Coronary Arteries using Other Contrast (ICD-10-PCS; 2024-04-26)
PROC: B215YZZ Fluoroscopy of Left Heart using Other Contrast (ICD-10-PCS; 2024-04-26)
PROC: 4A023N7 Measurement of Cardiac Sampling and Pressure, Left Heart, Percutaneous Approach (ICD-10-PCS; 2024-04-26)
DX: I21.09 ST elevation (STEMI) myocardial infarction involving other coronary artery of anterior wall (principal); E11.9 Type 2 diabetes mellitus without complications; I10 Essential (primary) hypertension; E78.5 Hyperlipidemia, unspecified; Z88.2 Allergy status to sulfonamides; Z79.899 Other long term (current) drug therapy; Z79.82 Long term (current) use of aspirin; Z87.01 Personal history of pneumonia (recurrent); Z83.3 Family history of diabetes mellitus; Z82.49 Family history of ischemic heart disease and other diseases of the circulatory system; I25.2 Old myocardial infarction; Z98.61 Coronary angioplasty status
CPT/HCPCS: 36415; 71045; 80053; 82565; 83880; 84443; 84484; 85025; 85610; 85730; 87081; 92941; 92973; 93005; 93306; 93458; 99152; 99291; C1874; C1887; G0378; J2250

== ENCOUNTER 2024-05-23 13:56 | Inpatient (IN) | payer MEDICAID ==
[~2024-05-23] VITALS: Ht 182.9 cm; Wt 87.4 kg
[~2024-05-23 13:56] MED LIST changes: +ALBU108A5 INH; +ATOR20TA50 PO; -ATOR40TA52 PO; +CARV-214 PO; +EMPA1TAB PO; +GLIM-38 PO; +LISI-275 PO; +TICA90TA PO
[2024-05-23 15:30] VITALS: PULSE 87; RESP 13; O2SAT 99
[2024-05-23] MEDS: ALBUTEROL SULF 2.5 MG/0.5ML(0.5%) NEB SOLN NEB ONE (15:33)
[2024-05-23] MEDS: IPRATROPIUM BROM 0.5 MG/2.5ML INH SOL NEB ONE (15:33)
[2024-05-23 15:36] LABS: Basophils # (auto) 0 10 ^3/uL (0-0.2); Basophils % (auto) 0.4 % (0.0-2.0); Eosinophils # (auto) 0.5 10 ^3/uL (0-0.8); Eosinophils % (auto) 5.9 % (0.0-7.0); Hematocrit 48.2 % (41.0-53.0); Hemoglobin 16.3 g/dL (13.5-17.5); Lymphocytes # (auto) 1.8 10 ^3/uL (0.4-5.4); Lymphocytes % (auto) 19.6 % (10.0-50.0); Mean Corpuscular Hemoglobin 28.6 pg (28.0-32.0); Mean Corpuscular Hgb Conc. 33.9 g/dL (32.0-36.0); Mean Corpuscular Volume 84.4 fL (80.0-100.0); Monocytes # (auto) 0.8 10 ^3/uL (0-1.3); Monocytes % (auto) 8.5 % (0.0-12.0); Neutrophils # (auto) 6.1 10 ^3/uL (1.6-8.6); Neutrophils % (auto) 65.6 % (37.0-80.0); Nucleated Red Blood Cells % 0.1 %; Platelet Count (auto) 180 10^3/uL (140-450); Red Blood Cells 5.71 10^6/uL (4.5-5.90); Red Cell Distribution Width 15.1 % (11.8-14.3); White Blood Cell 9.3 10^3/uL (4.4-10.8)
[2024-05-23 15:57] LABS: Alanine Aminotransferase 41 U/L (7-40); Albumin 4.8 g/dL (3.2-4.8); Alkaline Phosphatase 73 U/L (46-116); Anion Gap 6 (5-15); Aspartate Aminotransferase 35 U/L (13-40); BUN/Creatinine Ratio 12.9 (10.0-20.0); Bilirubin, Total 0.8 mg/dL (0.2-1.0); Blood Urea Nitrogen 11 mg/dL (9-23); Calcium 10.3 mg/dL (8.7-10.4); Carbon Dioxide 28 mmol/L (20-30); Chloride 106 mmol/L (98-107); Glucose 106 mg/dL (74-106); Potassium 4.3 mmol/L (3.5-5.1); Sodium 140 mmol/L (136-145)
[2024-05-23 15:58] LABS: Total Protein 7.7 g/dL (5.7-8.2)
[2024-05-23 16:59] LABS: COVID19 ANTIGEN SOFIA FIA NEGATIVE (NEGATIVE); Rapid Influenza A Negative (Negative); Rapid Influenza B Negative (Negative)
[2024-05-23] MEDS: SODIUM CHLORIDE 0.9% 2,000 ML IV ONE (17:07)
[2024-05-23] MEDS: DOXYCYCLINE 100MG/250ML 250 ML IV ONE (18:45)
[2024-05-23 19:42] VITALS: PULSE 74; RESP 13; O2SAT 97
[2024-05-23] MEDS ORDERED: HYDROcodone-ACET 5/325MG TAB PO PRN (21:30)
[2024-05-23] MEDS ORDERED: ACETAMINOPHEN 325 MG TAB PO PRN (21:30)
[2024-05-23] MEDS ORDERED: DOCUSATE SOD 100 MG CAP PO PRN (21:30)
[2024-05-23] MEDS ORDERED: ONDANSETRON HCL 4 MG/2 ML VIAL IV PRN (21:30)
[2024-05-23] MEDS ORDERED: ALBUTEROL SULF 2.5 MG/0.5ML(0.5%) NEB SOLN NEB PRN (21:30)
[2024-05-23] MEDS ORDERED: IPRATROPIUM BROM 0.5 MG/2.5ML INH SOL NEB PRN (21:30)
[2024-05-23] MEDS: DOXYCYCLINE 100MG/250ML 250 ML IV SCH (21:30)
[2024-05-23] MEDS ORDERED: DEXTROSE (50%) 50ML SYRG IV PRN (21:30)
[2024-05-23] MEDS: InsuLIN REG 1unit/0.01ml Soln (100units/ml) SC SCH (22:00)
[2024-05-23] MEDS: ACCU-CHEK COMFORT CURVE STRIP VI SCH (22:02)
[2024-05-23] MEDS: SODIUM CHLOR 0.9% PF (SALINE LOCK) 10ML VIAL/SYR IV SCH (22:08)
[2024-05-23] MEDS: TICAGRELOR 90 MG TAB PO SCH (22:08)
[2024-05-23] MEDS: ATORVASTATIN 20 MG TAB PO SCH (22:08)
[2024-05-23] MEDS ORDERED: MORPHINE SULFATE INJ 2 MG/ml SYRG IV PRN (22:45)
[2024-05-23] MEDS ORDERED: NITROGLYCERIN 0.4 MG SL TAB SL PRN (22:45)
[2024-05-23 22:54] VITALS: BP 102/64; PULSE 78; RESP 17; O2SAT 96
[2024-05-23 23:36] VITALS: O2SAT 98
[2024-05-24] VITALS (11 sets, daily range): BP systolic 101–138; BP diastolic 57–86; PULSE 65–83; RESP 16–19; TEMP 97.7–98.1; O2SAT 92–100
[2024-05-24] MEDS ORDERED: METF-371 PO (01:33)
[2024-05-24 06:10] LABS: Basophils # (auto) 0 10 ^3/uL (0-0.2); Basophils % (auto) 0.3 % (0.0-2.0); Eosinophils # (auto) 0.4 10 ^3/uL (0-0.8); Eosinophils % (auto) 5.7 % (0.0-7.0); Hematocrit 41.9 % (41.0-53.0); Hemoglobin 14.5 g/dL (13.5-17.5); Lymphocytes # (auto) 1.5 10 ^3/uL (0.4-5.4); Lymphocytes % (auto) 21.5 % (10.0-50.0); Mean Corpuscular Hemoglobin 29.5 pg (28.0-32.0); Mean Corpuscular Hgb Conc. 34.5 g/dL (32.0-36.0); Mean Corpuscular Volume 85.3 fL (80.0-100.0); Monocytes # (auto) 0.7 10 ^3/uL (0-1.3); Monocytes % (auto) 9.3 % (0.0-12.0); Neutrophils # (auto) 4.4 10 ^3/uL (1.6-8.6); Neutrophils % (auto) 63.2 % (37.0-80.0); Nucleated Red Blood Cells % 0.2 %; Platelet Count (auto) 108 10^3/uL (140-450); Red Blood Cells 4.92 10^6/uL (4.5-5.90)
[2024-05-24 06:19] LABS: Alanine Aminotransferase 29 U/L (7-40); Alkaline Phosphatase 53 U/L (46-116); Anion Gap 6 (5-15); Blood Urea Nitrogen 9 mg/dL (9-23); Calcium 9.2 mg/dL (8.7-10.4); Carbon Dioxide 26 mmol/L (20-30); Chloride 109 mmol/L (98-107); Glucose 80 mg/dL (74-106); Potassium 4.3 mmol/L (3.5-5.1); Sodium 141 mmol/L (136-145)
[2024-05-24 06:20] LABS: Albumin 3.9 g/dL (3.2-4.8); Aspartate Aminotransferase 24 U/L (13-40); Bilirubin, Total 0.7 mg/dL (0.2-1.0)
[2024-05-24 06:21] LABS: Total Protein 6.6 g/dL (5.7-8.2)
[2024-05-24] MEDS: ASPirin 81 mg TAB PO SCH (10:46)
[2024-05-24] MEDS ORDERED: VANCOMYCIN PER PHARMACY 0 MG IV SCH (14:45)
[2024-05-24] MEDS: PIPERACILLIN-TAZOB 3.375GM 100 ML IV ONE (15:29)
[2024-05-24] MEDS: VANCOMYCIN 1GM/200ML 200 ML IV SCH (16:56)
[2024-05-24 22:22] LABS: Urine Bacteria None Seen /hpf (None Seen); Urine WBC None Seen /hpf (0 - 3)
[2024-05-24] MEDS: PIPERACILLIN-TAZOB 3.375GM 100 ML IV SCH (22:29)
[2024-05-24 22:34] LABS: Urine Blood Negative /uL (Negative); Urine Clarity Clear (Clear); Urine Color Colorless (Yellow); Urine Protein, UAD Negative (Negative); Urine Specific Gravity 1.017 (1.001-1.035); Urine Urobilinogen Normal (Negative); Urine pH 6.5 (5.0-9.0)
[2024-05-24 22:42] LABS: Amphetamine Screen, Urine Neg (NEGATIVE); Barbiturate Scree,Urine Neg (NEGATIVE); Benzodiazephine Screen, Urine Neg (NEGATIVE); Cocaine Screen, Urine Neg (NEGATIVE)
[2024-05-24 22:43] LABS: Cannabinoid Screen, Urine Neg (NEGATIVE); Opiate Scree,Urine Neg (NEGATIVE); Phencyclidine Screen, Urine Neg (NEGATIVE)
[2024-05-25] VITALS (11 sets, daily range): BP systolic 108–115; BP diastolic 55–77; PULSE 48–86; RESP 18–20; TEMP 97.7–98; O2SAT 94–100
[2024-05-25] MEDS: VANCOMYCIN 1GM/200ML 200 ML IV SCH (00:45)
[2024-05-25 06:47] LABS: Basophils # (auto) 0 10 ^3/uL (0-0.2); Basophils % (auto) 0.4 % (0.0-2.0); Eosinophils # (auto) 0.4 10 ^3/uL (0-0.8); Hematocrit 44.5 % (41.0-53.0); Hemoglobin 14.9 g/dL (13.5-17.5); Lymphocytes # (auto) 1.3 10 ^3/uL (0.4-5.4); Lymphocytes % (auto) 20.6 % (10.0-50.0); Mean Corpuscular Hemoglobin 28.5 pg (28.0-32.0); Mean Corpuscular Hgb Conc. 33.6 g/dL (32.0-36.0); Mean Corpuscular Volume 84.7 fL (80.0-100.0); Monocytes # (auto) 0.5 10 ^3/uL (0-1.3); Monocytes % (auto) 8.7 % (0.0-12.0); Neutrophils % (auto) 63.3 % (37.0-80.0); Nucleated Red Blood Cells % 0.2 %; Platelet Count (auto) 115 10^3/uL (140-450); Red Blood Cells 5.25 10^6/uL (4.5-5.90); Red Cell Distribution Width 15.1 % (11.8-14.3); White Blood Cell 6.3 10^3/uL (4.4-10.8)
[2024-05-25 06:57] LABS: Anion Gap 7 (5-15); Carbon Dioxide 26 mmol/L (20-30); Chloride 106 mmol/L (98-107); Sodium 139 mmol/L (136-145)
[2024-05-25 06:58] LABS: Calcium 9.4 mg/dL (8.7-10.4)
[2024-05-25 07:03] LABS: BUN/Creatinine Ratio 13.5 (10.0-20.0); Blood Urea Nitrogen 12 mg/dL (9-23); Glucose 95 mg/dL (74-106)
[2024-05-25] MEDS: AZITHROMYCIN 500MG/ 250ML 250 ML IV ONE (16:24)
[2024-05-26] VITALS (8 sets, daily range): BP systolic 105–131; BP diastolic 66–84; PULSE 56–94; RESP 16–20; TEMP 97.3–98.4; O2SAT 95–98
[2024-05-26 06:55] LABS: Basophils # (auto) 0 10 ^3/uL (0-0.2); Basophils % (auto) 0.5 % (0.0-2.0); Eosinophils # (auto) 0.4 10 ^3/uL (0-0.8); Eosinophils % (auto) 6.4 % (0.0-7.0); Hematocrit 46.6 % (41.0-53.0); Hemoglobin 15.5 g/dL (13.5-17.5); Lymphocytes # (auto) 1.2 10 ^3/uL (0.4-5.4); Mean Corpuscular Hemoglobin 28.2 pg (28.0-32.0); Mean Corpuscular Hgb Conc. 33.3 g/dL (32.0-36.0); Mean Corpuscular Volume 84.7 fL (80.0-100.0); Monocytes # (auto) 0.6 10 ^3/uL (0-1.3); Monocytes % (auto) 9.2 % (0.0-12.0); Neutrophils % (auto) 63.9 % (37.0-80.0); Nucleated Red Blood Cells % 0.2 %; Platelet Count (auto) 121 10^3/uL (140-450); Red Cell Distribution Width 15.2 % (11.8-14.3); White Blood Cell 6.2 10^3/uL (4.4-10.8)
[2024-05-26 07:00] LABS: Anion Gap 6 (5-15); Calcium 9.8 mg/dL (8.7-10.4); Carbon Dioxide 28 mmol/L (20-30); Chloride 106 mmol/L (98-107); Potassium 4.4 mmol/L (3.5-5.1); Sodium 140 mmol/L (136-145)
[2024-05-26 07:06] LABS: BUN/Creatinine Ratio 8.9 (10.0-20.0); Blood Urea Nitrogen 8 mg/dL (9-23); Glucose 91 mg/dL (74-106)
[2024-05-26 07:07] LABS: Magnesium 2.2 mg/dL (1.6-2.6)
[2024-05-26] MEDS: AZITHROMYCIN 500MG/ 250ML 250 ML IV SCH (11:09)
[2024-05-27] VITALS (8 sets, daily range): BP systolic 106–121; BP diastolic 64–71; PULSE 70–89; RESP 16–20; TEMP 97.4–98.3; O2SAT 95–97
[2024-05-27 06:25] LABS: Basophils # (auto) 0 10 ^3/uL (0-0.2); Basophils % (auto) 0.5 % (0.0-2.0); Eosinophils # (auto) 0.4 10 ^3/uL (0-0.8); Hematocrit 43.8 % (41.0-53.0); Hemoglobin 14.9 g/dL (13.5-17.5); Lymphocytes # (auto) 1.5 10 ^3/uL (0.4-5.4); Lymphocytes % (auto) 23.4 % (10.0-50.0); Mean Corpuscular Hemoglobin 28.7 pg (28.0-32.0); Mean Corpuscular Hgb Conc. 34.1 g/dL (32.0-36.0); Mean Corpuscular Volume 84.2 fL (80.0-100.0); Monocytes # (auto) 0.6 10 ^3/uL (0-1.3); Monocytes % (auto) 8.7 % (0.0-12.0); Neutrophils # (auto) 4.1 10 ^3/uL (1.6-8.6); Neutrophils % (auto) 61.4 % (37.0-80.0); Nucleated Red Blood Cells % 0.2 %; Platelet Count (auto) 125 10^3/uL (140-450); Red Blood Cells 5.19 10^6/uL (4.5-5.90); Red Cell Distribution Width 14.6 % (11.8-14.3); White Blood Cell 6.6 10^3/uL (4.4-10.8)
[2024-05-27 06:32] LABS: Anion Gap 8 (5-15); Calcium 9.4 mg/dL (8.7-10.4); Carbon Dioxide 26 mmol/L (20-30); Chloride 107 mmol/L (98-107); Potassium 3.7 mmol/L (3.5-5.1); Sodium 141 mmol/L (136-145)
[2024-05-27 06:38] LABS: BUN/Creatinine Ratio 9.9 (10.0-20.0); Blood Urea Nitrogen 8 mg/dL (9-23); Glucose 85 mg/dL (74-106)
[2024-05-27 08:44] LABS: INR 1.1 (0.9-1.15); Partial Thromboplastin Time 28.6 SEC (24.5-34.5); Prothrombin Time 11.6 sec (9.3-11.8)
[2024-05-27] MEDS: VANCOMYCIN 1GM/200ML 200 ML IV SCH (09:25)
[2024-05-27] MEDS: methylPREDNISolone SOD SUCC 125 MG/2 ML VL IV SCH (18:27)
[2024-05-28] VITALS (7 sets, daily range): BP systolic 106–118; BP diastolic 61–90; PULSE 51–104; RESP 16–97; TEMP 97.3–98.2; O2SAT 92–99
[2024-05-28] MEDS: IOHEXOL 300 MG/ML 100ML BOTTLE IJ ONE (07:23)
[2024-05-28 07:58] LABS: Basophils # (auto) 0 10 ^3/uL (0-0.2); Eosinophils # (auto) 0 10 ^3/uL (0-0.8); Eosinophils % (auto) 0.1 % (0.0-7.0); Hematocrit 42.4 % (41.0-53.0); Hemoglobin 14.7 g/dL (13.5-17.5); Lymphocytes # (auto) 0.6 10 ^3/uL (0.4-5.4); Lymphocytes % (auto) 12.7 % (10.0-50.0); Mean Corpuscular Hemoglobin 29.3 pg (28.0-32.0); Mean Corpuscular Hgb Conc. 34.6 g/dL (32.0-36.0); Mean Corpuscular Volume 84.5 fL (80.0-100.0); Monocytes # (auto) 0 10 ^3/uL (0-1.3); Monocytes % (auto) 0.8 % (0.0-12.0); Neutrophils # (auto) 4.1 10 ^3/uL (1.6-8.6); Neutrophils % (auto) 86.4 % (37.0-80.0); Nucleated Red Blood Cells % 0.1 %; Platelet Count (auto) 109 10^3/uL (140-450); Red Blood Cells 5.02 10^6/uL (4.5-5.90); Red Cell Distribution Width 14.8 % (11.8-14.3); White Blood Cell 4.7 10^3/uL (4.4-10.8)
[2024-05-28 08:18] LABS: Calcium 9.4 mg/dL (8.7-10.4); Chloride 106 mmol/L (98-107); Potassium 3.8 mmol/L (3.5-5.1); Sodium 139 mmol/L (136-145)
[2024-05-28 08:19] LABS: Anion Gap 8 (5-15); Carbon Dioxide 25 mmol/L (20-30)
[2024-05-28 08:24] LABS: Blood Urea Nitrogen 10 mg/dL (9-23); Glucose 165 mg/dL (74-106)
[2024-05-28] MEDS: VANCOMYCIN 1GM/200ML 200 ML IV SCH (22:35)
[2024-05-29] VITALS (7 sets, daily range): BP systolic 112–134; BP diastolic 54–78; PULSE 60–89; RESP 14–22; TEMP 97.2–97.9; O2SAT 93–98
[2024-05-29 07:57] LABS: Basophils # (auto) 0 10 ^3/uL (0-0.2); Eosinophils # (auto) 0 10 ^3/uL (0-0.8); Hematocrit 42.8 % (41.0-53.0); Hemoglobin 14.3 g/dL (13.5-17.5); Lymphocytes # (auto) 0.6 10 ^3/uL (0.4-5.4); Lymphocytes % (auto) 5.4 % (10.0-50.0); Mean Corpuscular Hemoglobin 28.3 pg (28.0-32.0); Mean Corpuscular Hgb Conc. 33.4 g/dL (32.0-36.0); Mean Corpuscular Volume 84.9 fL (80.0-100.0); Monocytes # (auto) 0.3 10 ^3/uL (0-1.3); Monocytes % (auto) 2.4 % (0.0-12.0); Neutrophils # (auto) 10.4 10 ^3/uL (1.6-8.6); Neutrophils % (auto) 92.2 % (37.0-80.0); Nucleated Red Blood Cells % 0.1 %; Platelet Count (auto) 115 10^3/uL (140-450); Red Blood Cells 5.04 10^6/uL (4.5-5.90); Red Cell Distribution Width 15.1 % (11.8-14.3); White Blood Cell 11.3 10^3/uL (4.4-10.8)
[2024-05-29 08:11] LABS: Anion Gap 8 (5-15); Carbon Dioxide 25 mmol/L (20-30); Chloride 108 mmol/L (98-107); Potassium 3.8 mmol/L (3.5-5.1); Sodium 141 mmol/L (136-145)
[2024-05-29 08:12] LABS: Calcium 9.5 mg/dL (8.7-10.4)
[2024-05-29 08:17] LABS: BUN/Creatinine Ratio 18.8 (10.0-20.0); Blood Urea Nitrogen 13 mg/dL (9-23); Glucose 179 mg/dL (74-106)
[2024-05-29] MEDS: FLUCONAZOLE 100 MG TAB PO SCH (12:38)
[2024-05-29] MEDS: VANCOMYCIN 1.25GM/250ML 250 ML IV SCH (19:00)
[2024-05-30] VITALS (7 sets, daily range): BP systolic 106–137; BP diastolic 59–75; PULSE 60–82; RESP 16–18; TEMP 97.4–98; O2SAT 92–96
[2024-05-30 07:13] LABS: Basophils # (auto) 0 10 ^3/uL (0-0.2); Basophils % (auto) 0.2 % (0.0-2.0); Eosinophils # (auto) 0 10 ^3/uL (0-0.8); Eosinophils % (auto) 0.2 % (0.0-7.0); Hematocrit 41.9 % (41.0-53.0); Lymphocytes # (auto) 0.5 10 ^3/uL (0.4-5.4); Lymphocytes % (auto) 4.6 % (10.0-50.0); Mean Corpuscular Hemoglobin 28.2 pg (28.0-32.0); Mean Corpuscular Hgb Conc. 33.3 g/dL (32.0-36.0); Mean Corpuscular Volume 84.6 fL (80.0-100.0); Monocytes # (auto) 0.6 10 ^3/uL (0-1.3); Monocytes % (auto) 5.8 % (0.0-12.0); Neutrophils # (auto) 8.7 10 ^3/uL (1.6-8.6); Neutrophils % (auto) 89.2 % (37.0-80.0); Platelet Count (auto) 99 10^3/uL (140-450); Red Blood Cells 4.96 10^6/uL (4.5-5.90); Red Cell Distribution Width 15.3 % (11.8-14.3); White Blood Cell 9.8 10^3/uL (4.4-10.8)
[2024-05-30 07:32] LABS: Chloride 108 mmol/L (98-107); Potassium 3.7 mmol/L (3.5-5.1); Sodium 143 mmol/L (136-145)
[2024-05-30 07:33] LABS: Anion Gap 9 (5-15); Calcium 9.2 mg/dL (8.7-10.4); Carbon Dioxide 26 mmol/L (20-30)
[2024-05-30 07:38] LABS: BUN/Creatinine Ratio 17.3 (10.0-20.0); Blood Urea Nitrogen 14 mg/dL (9-23); Glucose 244 mg/dL (74-106)
[2024-05-30] MEDS ORDERED: DEXTROSE (50%) 50ML SYRG IV PRN (08:15)
[2024-05-30] MEDS ORDERED: PRED10TA PO (10:51)
[2024-05-30] MEDS ORDERED: INSUINJ37 SC (10:51)
[2024-05-30] MEDS ORDERED: ITRA100C3 PO (10:51)
[2024-05-30] MEDS: ITRACONAZOLE 100 MG CAP PO SCH (11:32)
[2024-05-30] MEDS: ACCU-CHEK COMFORT CURVE STRIP VI SCH (12:02)
[2024-05-30] MEDS: InsuLIN REG 1unit/0.01ml Soln (100units/ml) SC SCH (12:03)
[2024-05-30] MEDS: INSULIN LANTUS (GLARGINE) 1 /0.01ml (100units/ml) SC ONE (12:03)
[2024-05-30] MEDS ORDERED: cefTRIAXone 2GM/50ML D5W 50 ML IV SCH (18:00)
[2024-05-30] MEDS ORDERED: InsuLIN REG 1unit/0.01ml Soln (100units/ml) SC SCH (22:00)
[2024-05-31] MEDS ORDERED: INSULIN LANTUS (GLARGINE) 1 /0.01ml (100units/ml) SC SCH (07:00)
[2024-06-02 07:06] LABS: QuantiFERON-TB Gold Plus Negative (Negative)
[2024-06-03 17:06] LABS: Coccidioides CF Antibody <1:2 (<1:2)
[2024-06-04 15:07] LABS: Aspergillus flavus Negative (Neg:<1:1); Aspergillus fumigatus Negative (Neg:<1:1); Aspergillus niger Negative (Neg:<1:1); Blastomyces Antibody DID Negative (Neg:<1:1)
== END 2024-05-30 17:19 | disposition home or self-care (01) | DRG 724 ==
LOC: ER 13:56 → TELE-CENTR 22:39 → TELE 22:39 → TELE-CENTR 23:47 → CENTRAL 05-28 23:27
PROVIDERS: ADMIT Internal Medicine; ATTEND Internal Medicine
DX: B44.1 Other pulmonary aspergillosis (principal); J96.01 Acute respiratory failure with hypoxia; J69.0 Pneumonitis due to inhalation of food and vomit; J15.69 Pneumonia due to other Gram-negative bacteria; E78.5 Hyperlipidemia, unspecified; I10 Essential (primary) hypertension; Z20.822 Contact with and (suspected) exposure to COVID-19; I25.10 Atherosclerotic heart disease of native coronary artery without angina pectoris; E11.65 Type 2 diabetes mellitus with hyperglycemia; Z95.5 Presence of coronary angioplasty implant and graft; Z88.2 Allergy status to sulfonamides; Z82.49 Family history of ischemic heart disease and other diseases of the circulatory system
CPT/HCPCS: 36415; 71045; 71250; 71260; 76604; 80048; 80053; 80202; 80307; 81001; 82962; 83605; 83735; 83880; 84484; 85025; 85610; 85730; 86606; 86612; 86635; 86698; 86703; 87040; 87070; 87077; 87081; 87186; 87205; 87426; 87804; 93005; 94640; 96361; 96365; 96366; 97163; G0378; J1815; J2543; J3490